=== PATIENT | female | born 1935 | race Caucasian/White ===

== ENCOUNTER 2017-08-05 21:06 | Emergency (ER) | payer OTHER ==
--- NOTE | 2017-08-05 21:38 | EDPHY ---
H & P HPI/ROS: HPI CHIEF COMPLAINT: Left flank pain, trauma HISTORY OF PRESENT ILLNESS: Patient very pleasant 82-year-old female she is visiting her daughter she is from [facility] she is on Eliquis, she additionally has hypertension thyroid disease, she presents emergency room after she had a fall this evening at her daughter's house. She hit her back on the toilet and sustained a left flank pain with ecchymosis. And swelling. Past Medical History: Hypertension, thyroid disease, AFib on Eliquis Past Surgical History: No recent surgery Social History: Denies daily use of drugs alcohol tobacco products. Resides in [facility]. Family History: Noncontributory ROS REVIEW OF SYSTEMS: A comprehensive 10 point review of systems is otherwise negative aside from elements mentioned in the history of present illness. Exam Constitutional appears well nontoxic, triage nursing summary reviewed, vital signs reviewed, awake/alert. Eyes normal conjunctivae and sclera, EOMI, PERRLA. HENT normal inspection, atraumatic, moist mucus membranes, no epistaxis, neck supple/ no meningismus, no raccoon eyes. Respiratory clear to auscultation bilaterally, normal breath sounds, no respiratory distress, no wheezing. Cardiovascular rate normal, regular rhythm, no murmur, no edema, distal pulses normal. Gastrointestinal soft, non-tender, no rebound, no guarding, normal bowel sounds, no distension, no pulsatile mass. Genitourinary tenderness palpation of the left flank, ecchymosis and swelling present. No crepitus. Musculoskeletal no midline vertebral tenderness, full range of motion, no calf swelling, no tenderness of extremities, no meningismus, good pulses, neurovascularly intact. Skin pink, warm, & dry, no rash, skin atraumatic. Neurologic awake, alert and oriented x 3, AAOx3, moves all 4 extremities equally, motor intact, sensory intact, CN II-XII intact, normal cerebellar, normal vision, normal speech. Psychiatric normal mood/affect. Heme/Lymph/Immune no lymphadenopathy. Differential Diagnosis: Includes but is not limited to in a particular order traumatic injury to the left kidney, retroperitoneal bleed, musculoskeletal injury, soft tissue injury, flank contusion. Medical Decision Making: Plan for this patient IV establishment, check basic blood work including coags, CT abdomen pelvis with IV contrast for trauma. To evaluate the left kidney make sure there is not a renal contusion laceration bleed. Retroperitoneal bleed. Re-evaluation: 2250: CT scan abdomen pelvis with IV contrast for left flank trauma called to me by Dr. Dhruv Valerio. This shows a L1 transverse process fracture as well as a left 11th rib fracture. No pneumothorax. No hemothorax. No kidney injury. Additionally incidental finding descending aortic aneurysm 3.9. Will update patient about this. 2310: I went over this patient's CT results with her. She understands she has an abdominal aortic aneurysm that needs follow-up. Aditionally the patient understands she is L1 transverse process fracture. 11th rib fracture. She be placed on a incentive spirometer. Recommend Tylenol for pain control. Ice pack. Additionally she understands return emergency room if develops worsening back pain vomiting abdominal pain fever. Of note it was noted her blood pressure was high when she arrived here. Has tried down slightly in emergency room she understands she should keep a close eye on this and follow up with her primary care doctor. Return precautions have been given. 1240: Re-evaluation at this time blood pressure greatly improved with IV hydralazine 10 mg. She is resting comfortably. She complains of left-sided back pain. Pettis 0.5 mg IV Dilaudid. Re-evaluation. Source: Patient, EMS Constitutional: Initial Vital Signs Temperature (C) 36.6 C 08/05/17 21:44 Heart Rate 65 08/05/17 21:44 Respiratory Rate 16 08/05/17 21:44 Blood Pressure 203/90 H 08/05/17 21:44 O2 Sat (%) 90 L 08/05/17 21:44 O2 Delivery Mode Nasal Cannula O2 (L/minute) 2 Allergies/Adverse Reactions: No Known Allergies Allergy (Unverified 08/05/17 21:54) Home Medications: Medication Instructions Recorded ASPIRIN 08/05/17 BIOTIN 08/05/17 Eliquis 08/05/17 LEVOTHYROXINE SODIUM 08/05/17 Losartan Potassium 08/05/17 Metoprolol Succinate 08/05/17 VITAMIN D 08/05/17 VITAMIN E 08/05/17 Medical Decision Making - Data Points Laboratory Results: Laboratory Results 08/05/17 21:50 08/05/17 21:50 08/05/17 08/05/17 08/05/17 23:15 21:50 21:50 WBC RBC Hgb Hct MCV MCH MCHC RDW Plt Count MPV Neut % (Auto) Lymph % (Auto) [place] % (Auto) Eos % (Auto) Baso % (Auto) Nucleat RBC Rel Count Absolute Neuts (auto) Absolute Lymphs (auto) Absolute Monos (auto) Absolute Eos (auto) Absolute Basos (auto) Absolute Nucleated RBC Immature Gran % Immature Gran # PT 17.7 SEC H SEC (12.0-15.0) INR 1.46 H (0.83-1.16) APTT 32.0 SEC SEC (23.0-38.0) Sodium 139 mEq/L mEq/L (134-144) Potassium 3.9 mEq/L mEq/L (3.5-5.2) Chloride 102 mEq/L mEq/L (97-110) Carbon Dioxide 26 mEq/l mEq/l (22-31) Anion Gap 11 mEq/L mEq/L (8-16) BUN 25 mg/dL H mg/dL (7-23) Creatinine 1.5 mg/dL H mg/dL (0.6-1.0) Estimated GFR 33 Glucose 114 mg/dL H mg/dL (70-100) Calcium 9.7 mg/dL mg/dL (8.5-10.4) Urine Color PALE YELLOW Urine Appearance CLEAR Urine pH 5.0 (5.0-7.5) Ur Specific [place] 1.028 (1.002-1.030) Urine Protein NEGATIVE (NEGATIVE) Urine Ketones NEGATIVE (NEGATIVE) Urine Blood 1+ H (NEGATIVE) Urine Nitrate NEGATIVE (NEGATIVE) Urine Bilirubin NEGATIVE (NEGATIVE) Urine Urobilinogen NEGATIVE EU EU (0.2-1.0) Ur Leukocyte Esterase NEGATIVE (NEGATIVE) Urine RBC 1-3 /hpf /hpf (0-3) Urine WBC 1-3 /hpf /hpf (0-3) Ur Epithelial Cells TRACE /lpf /lpf (NONE-1+) Urine Mucus TRACE /lpf /lpf (NONE-1+) Urine Glucose NEGATIVE (NEGATIVE) 08/05/17 21:50 WBC 8.59 10^3/uL 10^3/uL (3.80-9.50) RBC 4.13 10^6/uL L 10^6/uL (4.18-5.33) Hgb 14.2 g/dL g/dL (12.6-16.3) Hct 41.8 % % (38.0-47.0) MCV 101.2 fL H fL (81.5-99.8) MCH 34.4 pg H pg (27.9-34.1) MCHC 34.0 g/dL g/dL (32.4-36.7) RDW 13.8 % % (11.5-15.2) Plt Count 193 10^3/uL 10^3/uL (150-400) MPV 10.2 fL fL (8.7-11.7) Neut % (Auto) 65.7 % % (39.3-74.2) Lymph % (Auto) 19.9 % % (15.0-45.0) [place] % (Auto) 9.5 % % (4.5-13.0) Eos % (Auto) 3.6 % % (0.6-7.6) Baso % (Auto) 0.7 % % (0.3-1.7) Nucleat RBC Rel Count 0.0 % % (0.0-0.2) Absolute Neuts (auto) 5.64 10^3/uL 10^3/uL (1.70-6.50) Absolute Lymphs (auto) 1.71 10^3/uL 10^3/uL (1.00-3.00) Absolute Monos (auto) 0.82 10^3/uL H 10^3/uL (0.30-0.80) Absolute Eos (auto) 0.31 10^3/uL 10^3/uL (0.03-0.40) Absolute Basos (auto) 0.06 10^3/uL 10^3/uL (0.02-0.10) Absolute Nucleated RBC 0.00 10^3/uL 10^3/uL (0-0.01) Immature Gran % 0.6 % % (0.0-1.1) Immature Gran # 0.05 10^3/uL 10^3/uL (0.00-0.10) PT INR APTT Sodium Potassium Chloride Carbon Dioxide Anion Gap BUN Creatinine Estimated GFR Glucose Calcium Urine Color Urine Appearance Urine pH Ur Specific [place] Urine Protein Urine Ketones Urine Blood Urine Nitrate Urine Bilirubin Urine Urobilinogen Ur Leukocyte Esterase Urine RBC Urine WBC Ur Epithelial Cells Urine Mucus Urine Glucose Medications Given: Discontinued Medications Hydralazine HCl (Apresoline) 10 mg IVP EDNOW ONE Stop: 08/05/17 23:30 Last Admin: 08/05/17 23:35 Dose: 10 mg Hydromorphone HCl (Dilaudid) 0.5 mg IVP EDNOW ONE Stop: 08/06/17 00:25 Last Admin: 08/06/17 00:32 Dose: 0.5 mg Sodium Chloride (Ns) 1,000 mls @ 0 mls/hr IV ONCE ONE PRN Reason: Wide Open Stop: 08/05/17 22:25 Last Admin: 08/05/17 22:40 Dose: 1,000 mls Departure - Departure Disposition: Home, Routine, Self-Care Clinical Impression: Contusion, flank Qualifiers: Encounter type: initial encounter Qualified Code(s): S30.1XXA - Contusion of abdominal wall, initial encounter Rib fracture Qualifiers: Encounter type: initial encounter Rib fracture type: single rib Fracture type: closed Laterality: left Qualified Code(s): S22.32XA - Fracture of one rib, left side, initial encounter for closed fracture Lumbar transverse process fracture Qualifiers: Encounter type: initial encounter Fracture type: closed Qualified Code(s): S32.009A - Unspecified fracture of unspecified lumbar vertebra, initial encounter for closed fracture AAA (abdominal aortic aneurysm) Qualifiers: Presence of rupture: without rupture Qualified Code(s): I71.4 - Abdominal aortic aneurysm, without rupture Condition: Good Instructions: Rib Fracture (ED) Additional Instructions: 1.If you have worsening pain please immediately return to the emergency room. 2. View started vomiting having worsening abdominal pain back pain return to the ER. 3. You have a single rib fracture. 4. Additionally you have a abdominal aortic aneurysm that needs to be followed up by her doctor. Referrals: NONE *PRIMARY CARE P,. [Primary Care Provider] - As per Instructions
[2017-08-05 22:18] LABS: PLATELET COUNT 193 10^3/uL (150-400)
[2017-08-05] MEDS ORDERED: IOPAMIDOL (ISOVUE-300) 100 ML BTL ONE (22:21)
[2017-08-05] MEDS ORDERED: NS 1,000 ML IV ONE (22:24)
[2017-08-05 23:00] LABS: INR 1.46 (0.83-1.16); PROTIME(PATIENT) 17.7 SEC (12.0-15.0)
[2017-08-05] MEDS ORDERED: hydrALAZINE 20 MG/ML VIAL IVP ONE (23:29)
[2017-08-06] MEDS ORDERED: HYDROmorphONE/DILAUDID 1 MG/ML INJ IVP ONE (00:24)
[2017-08-06 01:31] VITALS: BP 124/65; PULSE 77; RESP 18; TEMP 98.1; O2SAT 96
== END 2017-08-06 01:36 | disposition home or self-care (01) ==
DX: S32.009A Unspecified fracture of unspecified lumbar vertebra, initial encounter for closed fracture (principal); S22.32XA Fracture of one rib, left side, initial encounter for closed fracture; S30.1XXA Contusion of abdominal wall, initial encounter; I71.4 Abdominal aortic aneurysm, without rupture; I10 Essential (primary) hypertension; Z79.82 Long term (current) use of aspirin; Z79.01 Long term (current) use of anticoagulants; W18.12XA Fall from or off toilet with subsequent striking against object, initial encounter; Y92.009 Unspecified place in unspecified non-institutional (private) residence as the place of occurrence of the external cause
CPT/HCPCS: 74177; 96361; 96374; 96375; 99285; J0360; J1170; Q9967

== ENCOUNTER 2017-09-07 11:01 | Observation (INO) | payer OTHER ==
--- NOTE | 2017-09-07 13:31 | CPEKG ---
Heart Rate: 53 RR Interval: 1132 P-R Interval: 200 QRSD Interval: 96 QT Interval: 440 QTC Interval: 414 P [place]: 51 QRS [place]: -27 T Wave [place]: 110 EKG Severity - ABNORMAL ECG - EKG Impression: SINUS RHYTHM EKG Impression: PROBABLE LEFT VENTRICULAR HYPERTROPHY Electronically Signed By: Ivory Stein 07-Sep-2017 17:57:36
[2017-09-07 14:37] LABS: % IMMATURE GRANULYOCYTES 0.3 % (0.0-1.1); ABSOLUTE IMMATURE GRANULOCYTES 0.02 10^3/uL (0.00-0.10); ADD DIFF? NO; ADD MORPH? NO; ADD SCAN? NO; ATYPICAL LYMPHOCYTE FLAG 0 (0-99); FRAGMENT RBC FLAG 0 (0-99); HEMATOCRIT 44.3 % (38.0-47.0); HEMOGLOBIN 15.1 g/dL (12.6-16.3); LEFT SHIFT FLG 0 (0-99); LIPEMIA HEMOLYSIS FLAG 90 (0-99); MEAN CELL HEMOGLOBIN 34.9 pg (27.9-34.1); MEAN CELL HEMOGLOBIN CONCENTR. 34.1 g/dL (32.4-36.7); MEAN CELL VOLUME 102.3 fL (81.5-99.8); MEAN PLATELET VOLUME 10.2 fL (8.7-11.7); PLATELET CLUMPS FLAG 30 (0-99); PLATELET COUNT 181 10^3/uL (150-400); RED BLOOD CELL COUNT 4.33 10^6/uL (4.18-5.33); RED CELL DISTRIBUTION WIDTH 13.6 % (11.5-15.2)
[2017-09-07 14:46] LABS: ALANINE AMINOTRANSFERASE 38 IU/L (9-52); ALBUMIN 3.8 g/dL (3.5-5.0); ALKALINE PHOSPHATASE 85 IU/L (38-126); ANION GAP 13 mEq/L (8-16); ASPARTATE AMINOTRANSFERASE 25 IU/L (14-46); BILIRUBIN,TOTAL 0.4 mg/dL (0.1-1.4); BILIRUBIN-CONJUGATED 0.2 mg/dL (0.0-0.5); BILIRUBIN-UNCONJUGATED 0.2 mg/dL (0.0-1.1); CALCIUM 10.2 mg/dL (8.5-10.4); CARBON DIOXIDE 25 mEq/l (22-31); CHLORIDE 108 mEq/L (97-110); CREATININE 1.2 mg/dL (0.6-1.0); GLOMERULAR FILTRATION RATE 43; GLUCOSE 103 mg/dL (70-100); POTASSIUM 4.4 mEq/L (3.5-5.2); SODIUM 146 mEq/L (134-144); TOTAL PROTEIN 6.7 g/dL (6.3-8.2)
[2017-09-07 14:57] LABS: TROPONIN I < 0.012 ng/mL (0.000-0.034)
--- NOTE | 2017-09-07 16:53 | EDPHY ---
H & P Stated Complaint: Sent from new PCPs office for eval drop in O2 w/ambulation Time Seen by Provider: 09/07/17 13:30 HPI/ROS: CHIEF COMPLAINT: Shortness of breath HISTORY OF PRESENT ILLNESS: This is an 82-year-old female presents emergency department reporting that last month she has been having shortness of breath. Patient moved to [place] approximately a month ago and is living with her daughter. She denies fevers or chills, cold or cough symptoms. She denies chest discomfort although she did fall in the bathtub about a month ago and struck her posterior left chest causing a rib fracture. No anterior chest pain. No palpitations. No lightheadedness or dizziness or fainting. No peripheral edema. Patient has a history of CVA, atrial fibrillation, and a patent foramen ovale. She is currently on Eliquis as well as aspirin. She went to see a new primary care physician, Dr. Zhang, today and was noted in the office to desaturate into the low 80s with ambulation. She was referred to the emergency department for further evaluation. REVIEW OF SYSTEMS: Aside from elements discussed in the HPI, a comprehensive 10-point review of systems was reviewed and is negative. PAST MEDICAL HISTORY: CVA, hypertension, patent foramen ovale, atrial fibrillation. SOCIAL HISTORY: Former smoker. With her daughter. VITAL SIGNS Reviewed by me. GENERAL: Pleasant, elderly female, no obvious distress. O2 sat on room air ranges from 88-90%. No obvious respiratory distress. HEENT: Atraumatic. Eyes: No icterus, no injection. Mouth: moist mucous membranes. No erythema or lesions. Neck: supple with no adenopathy. LUNGS: Clear to auscultation bilaterally, no wheezes, rhonchi or rales. CARDIAC: A bradycardic rate, slightly irregular. No rubs murmurs or gallops. ABDOMEN: Soft, nontender, nondistended, bowel sounds normal. BACK: No CVA tenderness. EXTREMITIES: No trauma. No edema. Range of motion is normal throughout. NEURO: Alert and oriented, cranial nerves 2-12 are intact. No nystagmus. Pupils are 3 mm reactive on the right, 4 mm and reactive on the left. Motor strength and sensation are intact throughout. SKIN: Warm and dry, no rash. PSYCHIATRIC: [Normal mentation, no agitation. - Personal History Current Tetanus Diphtheria and Acellular Pertussis (TDAP): Yes - Medical/Surgical History Hx Asthma: No Hx Chronic Respiratory Disease: No Hx Cardiac Disease: Yes Hx Renal Disease: No Hx Cirrhosis: No Hx Alcoholism: No Hx HIV/AIDS: No Hx Splenectomy or Spleen Trauma: No Other PMH: a-fib, cva, htn, tia, hypothyroid - Social History Smoking Status: Former smoker Constitutional: Initial Vital Signs Temperature (C) 36.7 C 09/07/17 11:13 Heart Rate 75 09/07/17 11:13 Respiratory Rate 20 09/07/17 11:13 Blood Pressure 151/78 H 09/07/17 11:13 O2 Sat (%) 93 09/07/17 11:13 O2 Delivery Mode Nasal Cannula O2 (L/minute) 2 Allergies/Adverse Reactions: No Known Allergies Allergy (Verified 09/07/17 11:13) Home Medications: Medication Instructions Recorded ASPIRIN 08/05/17 BIOTIN 08/05/17 Eliquis 08/05/17 LEVOTHYROXINE SODIUM 08/05/17 Losartan Potassium 08/05/17 Metoprolol Succinate 08/05/17 VITAMIN D 08/05/17 VITAMIN E 08/05/17 Medical Decision Making - Diagnostics EKG Interpretation: 12-LEAD EKG: Please see the full report in [facility]. My interpretation: sinus bradycardia Imaging Results: Imaging Impressions Chest X-Ray 09/07/17 13:34 Impression: No evidence for acute cardiopulmonary abnormality. Chronic findings as above. Imaging: I viewed and interpreted images myself ED Course/Re-evaluation: 82-year-old female recently moved to [place] now presenting with shortness of breath and hypoxia on exertion. Referred to the emergency department from Dr. Zhang. Patient has a somewhat complex past medical history including atrial fibrillation, stroke, on Eliquis on aspirin, and history of the patent foramina ovale. Evaluation included labs demonstrating a normal troponin and a negative D-dimer with a BNP of 566. Chest x-ray demonstrates no clear cause of the patient's hypoxemia. She does not have peripheral edema examination. Patient's course was discussed with the hospitalist service. She will be admitted to Dr. Bhakta service for ongoing evaluation of her persistent hypoxemia. Differential Diagnosis: Differential diagnosis for the patient's shortness of breath was considered including but not limited to pulmonary infectious processes, COPD exacerbation, pulmonary emboli, pulmonary edema, congestive heart failure, and cardiac causes. Consult/Admit Bed Type: Dr. Bhakta, [facility] - Data Points Laboratory Results: Laboratory Results 09/07/17 14:25 09/07/17 14:25 09/07/17 09/07/17 09/07/17 14:25 14:25 14:25 WBC 6.50 10^3/uL 10^3/uL (3.80-9.50) RBC 4.33 10^6/uL 10^6/uL (4.18-5.33) Hgb 15.1 g/dL g/dL (12.6-16.3) Hct 44.3 % % (38.0-47.0) MCV 102.3 fL H fL (81.5-99.8) MCH 34.9 pg H pg (27.9-34.1) MCHC 34.1 g/dL g/dL (32.4-36.7) RDW 13.6 % % (11.5-15.2) Plt Count 181 10^3/uL 10^3/uL (150-400) MPV 10.2 fL fL (8.7-11.7) Neut % (Auto) 58.3 % % (39.3-74.2) Lymph % (Auto) 26.6 % % (15.0-45.0) [place] % (Auto) 10.5 % % (4.5-13.0) Eos % (Auto) 3.5 % % (0.6-7.6) Baso % (Auto) 0.8 % % (0.3-1.7) Nucleat RBC Rel Count 0.0 % % (0.0-0.2) Absolute Neuts (auto) 3.79 10^3/uL 10^3/uL (1.70-6.50) Absolute Lymphs (auto) 1.73 10^3/uL 10^3/uL (1.00-3.00) Absolute Monos (auto) 0.68 10^3/uL 10^3/uL (0.30-0.80) Absolute Eos (auto) 0.23 10^3/uL 10^3/uL (0.03-0.40) Absolute Basos (auto) 0.05 10^3/uL 10^3/uL (0.02-0.10) Absolute Nucleated RBC 0.00 10^3/uL 10^3/uL (0-0.01) Immature Gran % 0.3 % % (0.0-1.1) Immature Gran # 0.02 10^3/uL 10^3/uL (0.00-0.10) D-Dimer 0.44 ug/mLFEU ug/mLFEU (0.00-0.50) Sodium 146 mEq/L H mEq/L (134-144) Potassium 4.4 mEq/L mEq/L (3.5-5.2) Chloride 108 mEq/L mEq/L (97-110) Carbon Dioxide 25 mEq/l mEq/l (22-31) Anion Gap 13 mEq/L mEq/L (8-16) BUN 28 mg/dL H mg/dL (7-23) Creatinine 1.2 mg/dL H mg/dL (0.6-1.0) Estimated GFR 43 Glucose 103 mg/dL H mg/dL (70-100) Calcium 10.2 mg/dL mg/dL (8.5-10.4) Total Bilirubin 0.4 mg/dL mg/dL (0.1-1.4) Conjugated Bilirubin 0.2 mg/dL mg/dL (0.0-0.5) Unconjugated Bilirubin 0.2 mg/dL mg/dL (0.0-1.1) AST 25 IU/L IU/L (14-46) ALT 38 IU/L IU/L (9-52) Alkaline Phosphatase 85 IU/L IU/L (38-126) Troponin I < 0.012 ng/mL ng/mL (0.000-0.034) NT-Pro-B Natriuret Pep 566 pg/mL H pg/mL (0-450) Total Protein 6.7 g/dL g/dL (6.3-8.2) Albumin 3.8 g/dL g/dL (3.5-5.0) Departure - Departure Disposition: [facility] Inpatient Acute Clinical Impression: Hypoxemia Dyspnea Qualifiers: Dyspnea type: dyspnea on exertion Qualified Code(s): R06.09 - Other forms of dyspnea Condition: Fair Referrals: Roya Zhang MD [Primary Care Provider] - As per Instructions
[2017-09-07] MEDS ORDERED: ONDANSETRON DISINTEGRATING 4 MG TAB PO PRN (17:51)
[2017-09-07] MEDS ORDERED: ACETAMINOPHEN 325 MG TAB PO PRN (17:51)
[2017-09-07] MEDS ORDERED: ONDANSETRON 4 MG/2 ML VIAL IVP PRN (17:51)
[2017-09-07] MEDS ORDERED: hydrALAZINE 25 MG TAB PO PRN (17:53)
--- NOTE | 2017-09-07 18:34 | GHP ---
[f rep st] HISTORY AND PHYSICAL DATE OF ADMISSION: 09/07/2017 CHIEF COMPLAINT: Shortness of breath. HISTORY OF PRESENT ILLNESS: This is an 82-year-old female with history of stroke x2 in April 2017, hypertension, PFO, atrial fibrillation, presenting with shortness of breath for the past month. This started when she moved to [place] from [place] to live with her daughter. She notes this specifically when she gets up and out of bed. Per her daughter, it is when she is walking up or down the stairs. Denies chest pain, cough or fever. No lower extremity or abdominal swelling. Mild pillow orthopnea. The day after moving here, she fell out of the tub and hit the toilet and broke a rib, per her reports. She no longer has pain or splinting. Occasional snoring, per her daughter. She has also been complaining of increased left eye blurriness for the past couple weeks, which has been going on since her stroke. She lost total vision for a few seconds yesterday. No dysarthria or focal numbness or focal weakness. 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 REVIEW OF SYSTEMS: I completed a 10-point review of systems, negative except as noted in HPI. PAST MEDICAL HISTORY: PFO, atrial fibrillation on anticoagulation, hypertension , hyperlipidemia, hypothyroidism, stroke x2 in April 2017, 100% carotid stenosis. PAST SURGICAL HISTORY: None. FAMILY HISTORY: Mother with cancer and [place]. Father with no past medical history. SOCIAL HISTORY: Lives with her daughter, phone number [phone], here in [place]. Smoked a pack to 2 packs a day for 60 years. No alcohol or illicits. ALLERGIES: No known drug allergies. HOME MEDICATIONS: Vitamin E, vitamin D, metoprolol 25 mg twice daily, aspirin 81 mg, levothyroxine 80 mcg, atorvastatin 80 mg, Eliquis 5 mg, biotin. PHYSICAL EXAM: VITAL SIGNS: Temperature 36.7, blood pressure 155/100, heart rate 55, respiration 18, 95% on 2 L, dropped to 88 on room air. HEENT: PERRLA. EOMI. Oropharynx clear. CARDIOVASCULAR: Bradycardic, but regular. No murmurs, gallops, rubs. Trace pedal edema. LUNGS: Clear. No wheezing or crackles. ABDOMEN: Soft, nontender, nondistended. Positive bowel sounds. : No [place]. MUSCULOSKELETAL: 5/5, upper and lower extremity strength. NEURO: 2 through 12 intact. PSYCH: Alert and oriented x3. Very pleasant. LABORATORY DATA: WBC 6, hemoglobin 15, hematocrit 44, platelets 181. D-dimer 0.44. Sodium 146, potassium 4.4, chloride 108, BUN 28, creatinine 1.2 (no old to compare), glucose 103. LFTs within normal. Troponin less than 0.012. BNP is 566. Total protein 6.7, albumin is 3.8 cm. EKG is personally reviewed by me, LVH, T-wave inversion in II and aVF, also in V2 through V5. No old to compare. Chest x-ray is personally reviewed by me, hyperexpanded, no opacity. Mild blunting of costophrenic angle. ASSESSMENT AND PLAN: 1. Shortness of breath: Mildly hypoxic here at 85% RA, 93 on 2 liters. Suspect due to underlying chronic obstructive pulmonary disease with significant tobacco history. Troponin and electrocardiogram negative for ischemia. Negative D-dimer. There is no overt volume overload. Check an echocardiogram. Recommend outpatient pulmonary function tests and follow up with Pulmonology. 2. Accelerated hypertension: resume home meds. p.r.n. hydralazine. 3. History of stroke: Aspirin, statin, beta-zack. 4. Persistent left eye blurriness: progressive since her CVA. She says complete occlusion of right ICA, but it is actually on the left on U/S here. Aggressive medical management with ASA, statin and BP control. 5. Hyperlipidemia: Statin. 6. Atrial fibrillation, rate controlled on metoprolol. Continue Eliquis. 7. Hypothyroidism. Levothyroxine. 8. Diet: Cardiac. 9. Deep venous thrombosis prophylaxis: On Eliquis. 10. Disposition: The patient warrants observation admission, given shortness of breath requiring pulse oxygen saturation and echocardiogram. /[id number]/MODL MTDD
[2017-09-07] MEDS: METOPROLOL TARTRATE 25 MG TAB PO SCH (19:39)
[2017-09-07] MEDS ORDERED: ATORVASTATIN CALCIUM 40 MG TAB PO SCH (21:00)
[2017-09-07] MEDS: APIXABAN 5 MG TAB PO SCH (21:06)
--- NOTE | 2017-09-08 08:30 | PDHOMEO2F ---
Home Oxygen Face to Face Home Orders: I certify that a physician or a nurse practitioner or physician's health assistant has had a [id number] encounter with this patient on the date of this order due to the diagnosis listed, which relates to the primary reason the patient requires home oxygen. Alternative treatments have been tried, or considered, and deemed ineffective. It is anticipated that supplemental oxygen will result in improvement with treatment. Home oxygen qualifying diagnosis: COPD SpO2 on room air (%): 80 Frequency of home oxygen needed: continuous Home oxygen liters per minute: 2 Home oxygen delivery device: nasal cannula Concentrator: Yes E-tanks for mobility and back up: Yes If ordering portable O2, is the patient mobile in the home?: Yes I certify that, based on these findings, the home oxygen is medically necessary for this patient for the following length of time. Length of time home oxygen needed: 1 month
[2017-09-08] MEDS ORDERED: ASPIRIN 81 MG CHEWABLE TAB PO SCH (09:00)
[2017-09-08] MEDS: APIXABAN 5 MG TAB PO SCH (09:39)
[2017-09-08] MEDS: METOPROLOL TARTRATE 25 MG TAB PO SCH (09:39)
--- NOTE | 2017-09-08 10:07 | ASMTCASEMG ---
Living Arrangements What is your living Answers: With Child(carmita) arrangement? Who do you live with? Type Of Residence What kind of residence do Answers: House you live in? Discharge Plan Comments Coordination Status Comments Notes: Patient is an 82yo female who was admitted observation status for shortness of breath, accelerated hypertension, hx of stroke, and persistant left eye blurriness. She recently moved here from [place] to live with her daughter, Chantel in [place]. No therapies have been ordered. D/C needs TBD. CM will follow. Date Signed: 09/08/2017 10:06 AM Electronically Signed By:Peggy Ivy LCSW
[2017-09-08 11:35] VITALS: TEMP 97.4
--- NOTE | 2017-09-08 12:15 | ECHO ---
[email or web address] [address] [address] Main: [phone] Fax: Transthoracic Echocardiogram Name: MELLO LEWIS MR#: [id number] Study Date: 09/08/2017 Study Time: 07:46 AM Date of : 1935 Age: 82 year(s) Height: 152.4 cm (60 in.) Weight: 62.6 kg (138 lb.) BSA: 1.59 m2 Gender: Female Examination: Echo Indication: Shortness of breath, Eval for RHF Image Quality: Contrast: Requested by: Edie Bhakta BP: 172 mmHg/67 mmHg Heart Rate: Rhythm: Normal sinus rhythm Indication: Shortness of breath, Eval for RHF Procedure Staff Dough Machine Operator: Sheldon Mast Reading Physician: Osmel Kebede Requesting Provider: Conclusions: Normal size left ventricle. Mild concentric LV hypertrophy. Normal global systolic LV function. EF is 69 %. No regional wall motion abnormality. Diastolic dysfunction is present. . Normal size right ventricle. Normal RV function. The left atrium is mildly dilated. Mild mitral valve regurgitation is present. The aortic valve is normal in appearance. The aortic valve is tri-leaflet. Mild to moderate aortic valve regurgitation. The pulmonary artery pressure is mildly increased. Mildly dilated ascending aorta measuring 4.2 cm. Measurements: Chambers Valvular Assessment AV/MV Valvular Assessment TV/PV Normal Normal Normal Name Value Range Name Value Range Name Value Range Ao Nataly (MM): 3.7 cm (2.2 cm-3.7 AV Vmax: 1.32 m/s (1 m/s-1.7 TR Vmax: 3.17 mm/s ( - ) cm) m/s) TR PGmax: 40 mmHg ( - ) IVSd (2D): 1.2 cm (0.6 cm-1.1 AV maxP mmHg ( - ) syst. PAP: 45 mmHg ( - ) cm) AV meanP mmHg ( - ) PV Vmax: 0.80 m/s (0.6 m/s-0.9 LVDd (2D): 4.0 cm (3.9 cm-5.3 FIDELINA (VTI): 1.4 cm ( - ) m/s) cm) AR (PHT): 677 ms ( - ) PV PGmax: 3 mmHg ( - ) LVDs (2D): 2.5 cm (2.1 cm-4 MV E Vmax: 0.80 m/s ( - ) cm) MV A Vmax: 0.42 m/s ( - ) LVPWd (2D): 1.1 cm ( - ) MV E/A: 1.90 ( - ) LVOTd 1.9 cm 1.9 cm mm MV meanP mmHg ( - ) Patient: MELLO LEWIS Study Date: 09/08/2017 Page 1 of 2 07:46 AM LVEF (2D): 69 (>=54 %) MVA (Vmax): 1.8 m/s ( - ) Continued Measurements: Chambers Valvular Assessment AV/MV Valvular Assessment TV/PV Name Value Name Value Name Value LADs Lon.0 cm MV Annulus: 3.1 cm CVP (est.): 5 mmHg LA Area: 15.6 cm2 MV E' Septal: 0.05 m/s LA Volume: 65 ml MV E/E' Septal: 16.10 LA Volume Index: 40.9 ml/m2 MV E/E' Lateral: 12.30 MV VTI: 26.10 cm MR ERO: 0.070 cm2 MR PISA radius: 4 mm MR Reg. Volume: 8 ml MR Reg. Fraction: 4 % AR Vmax: 4.80 cm/s AR ERO: 0.080 cm2 AR PISA radius: 0.4 cm AR Reg. Volume: 21.0 ml AR Reg. Fraction: 44 % AR VTI: 259.0 cm Additional Vessels Name Value Ao Ascendin.2 cm Findings: Left Ventricle: Normal size left ventricle. Mild concentric LV hypertrophy. Normal global systolic LV function. EF is 69 %. No regional wall motion abnormality. Diastolic dysfunction is present. . Right Ventricle: Normal size right ventricle. Normal RV function. Left Atrium: The left atrium is mildly dilated. Right Atrium: The right atrium is normal in size. Mitral Valve: The mitral valve is normal in appearance. Mild mitral valve regurgitation is present. Aortic Valve: The aortic valve is normal in appearance. The aortic valve is tri-leaflet. Mild to moderate aortic valve regurgitation. Tricuspid Valve: The tricuspid valve appears normal. Trivial to mild tricuspid valve regurgitation. The pulmonary artery pressure is mildly increased. Pulmonic Valve: The pulmonic valve is normal in appearance and function. Aorta: Mildly dilated ascending aorta measuring 4.2 cm. Pericardium: No pericardial effusion. (No Signature Object) Patient: MELLO LEWIS Study Date: 09/08/2017 Page 2 of 2 07:46 AM [id number]
[2017-09-08] MEDS ORDERED: APIXABAN 5 MG TAB PO SCH (12:30)
[2017-09-08] MEDS ORDERED: ATORVASTATIN CALCIUM 40 MG TAB PO SCH (12:30)
[2017-09-08] MEDS ORDERED: LEVOTHYROXINE 88 MCG TAB PO SCH (12:30)
[2017-09-08] MEDS ORDERED: METOPROLOL TARTRATE 25 MG TAB PO SCH (12:30)
[2017-09-08] MEDS ORDERED: LOSARTAN POTASSIUM 50 MG TAB PO SCH (12:30)
[2017-09-08] MEDS ORDERED: CHLORTHALIDONE 25 MG TAB PO SCH (12:30)
[2017-09-08] MEDS ORDERED: Herbals/Supplements -Info Only PO SCH (12:30)
[2017-09-08] MEDS ORDERED: ASPIRIN EC 81 MG TAB PO SCH (12:30)
[2017-09-08 16:17] VITALS: BP 162/83; PULSE 55; RESP 18; O2SAT 98
--- NOTE | 2017-09-08 17:56 | PDDCSUM ---
Discharge Summary Discharge Summary: DISCHARGE SUMMARY FOLLOW-UP ITEMS: Outpatient creatinine BUN and lytes Outpatient pulmonary function test DATE OF ADMISSION: 09/07/2017 DATE OF DISCHARGE: 09/08/2017 DISCHARGE DIAGNOSES: 1. Suspected COPD 2. Chronic hypertension 3. Paroxysmal atrial fibrillation 4. Suspected pulmonary hypertension CONSULTATIONS: None PROCEDURES / IMAGING: Echocardiogram demonstrating diastolic dysfunction, normal ejection fraction, elevated RVSP CHIEF COMPLAINT: Acute hypoxia and visual disturbance SUBJECTIVE: Patient is feeling well at time of discharge, she is no longer experiencing any visual symptoms and she is not short of breath PHYSICAL EXAM ON DISCHARGE: SpO2 was 86% on room air at rest, 72% with activity, reduced expiratory air movement diffusely throughout but no expiratory wheezes or bronchial breath sounds, no evidence of tachypnea, heart rhythm is regular, no lower extremity edema, cranial nerves 2-12 are intact and tested with the exception of left tongue deviation, mild left mouth palsy comma motor strength is 5/5 bilaterally upper and lower extremities, sensation intact bilaterally LABS ON DISCHARGE: Creatinine 1.2, BUN 28, serum sodium 146, BNP 566 HOSPITAL COURSE BY PROBLEM: The patient presented with acute hypoxia from the primary care setting, and this is most likely secondary to undiagnosed COPD with recent change in altitude from [facility] to [place]. The patient was not experiencing any signs of acute COPD exacerbation, and she was ruled out for pulmonary embolism with a negative D-dimer, ruled out for acute coronary syndrome with no ischemic changes on EKG, negative troponin. The patient was placed on supplemental oxygen and her hypoxia medially resolved. Consequently, the patient will require supplemental oxygen moving forward, with outpatient formal pulmonary function test to be arranged in the short term. I have also recommended that the patient carry an as-needed albuterol inhaler and she does have a significant smoking history and I believe that obstructive lung disease is her underlying pathology. She did not have any evidence of CHF exacerbation on chest x-ray, and I do not believe that she needs a cardiac stress test at this time unless the patient begins developing anginal symptoms despite being on supplemental oxygen. The patient's visual disturbance has been an intermittent occurrence, and she has no other signs of stroke. Consequently, I would recommend that she obtain formal outpatient ophthalmology visual field testing, and this will be arranged by the patient and her daughter in the short term. She will be continued on her systemic anticoagulation and anti-platelet medication as well as her statin, given her known 100% left carotid artery stenosis. Her blood pressure was less than optimal, and I have recommended initiating low-dose thiazide diuretic to be used in combination with her ARB, and she should have labs followed up at her primary care provider office. DISCHARGE MEDICATIONS: Please see official discharge medication reconciliation sheet in chart , chlorthalidone 12.5 mg daily, albuterol inhaler as needed, continue all other home medications. DISCHARGE INSTRUCTIONS: Please establish care with Dr. Kip Vora, obtain outpatient pulmonary function tests, have labs followed up by her primary care provider office later this week.
--- NOTE | 2017-09-09 10:31 | ASDISCHSUM ---
Discharge Information Plan Status:Home with No Needs Medically Cleared to Leave:09/07/2017 Discharge Date:09/08/2017 06:09 PM D/C Disposition: ADT D/C Disposition:Home, Routine, Self-Care Projected Discharge Date:09/08/2017 12:00 AM Transportation at D/C: Discharge Delay Reason: Follow-Up Date:09/08/2017 12:00 AM Discharge Slot: Final Diagnosis: Placement Information Patient Contact Information Contact Name:ALFONSO Relationship:Daughter Address: Work Phone: City: [facility] Phone: State/Zip Code: Email: Financial Information Financial Class: Primary Plan Desc:MEDICARE OUTPATIENT Primary Plan Number:[id number] Secondary Plan Desc: Secondary Plan Number: Assessment Information [facility] Initial CM Assessment Living Arrangements What is your living Answers: With Child(carmita) arrangement? Who do you live with? Type Of Residence What kind of residence do Answers: House you live in? Discharge Plan Comments Coordination Status Comments Notes: Patient is an 82yo female who was admitted observation status for shortness of breath, accelerated hypertension, hx of stroke, and persistant left eye blurriness. She recently moved here from [place] to live with her daughter, Chantel in [place]. No therapies have been ordered. D/C needs TBD. CM will follow. Date Signed: 09/08/2017 10:06 AM Electronically Signed By:Peggy Ivy LCSW Intervention Information Intervention Type:*DAVID-Signed Date of Service:09/08/2017 09:44 AM Patient Type:Observation Staff Member:Carlene Altamirano Hours: Discipline: Severity: Comment:
--- NOTE | 2017-09-09 12:31 | PDHOMEO2F ---
Home Oxygen Face to Face Home Orders: I certify that a physician or a nurse practitioner or physician's patent legal assistant has had a [id number] encounter with this patient on the date of this order due to the diagnosis listed, which relates to the primary reason the patient requires home oxygen. Alternative treatments have been tried, or considered, and deemed ineffective. It is anticipated that supplemental oxygen will result in improvement with treatment. Home oxygen qualifying diagnosis: COPD SpO2 on room air (%): 86 Frequency of home oxygen needed: continuous Home oxygen liters per minute: 2 Home oxygen delivery device: nasal cannula Concentrator: Yes E-tanks for mobility and back up: Yes If ordering portable O2, is the patient mobile in the home?: Yes I certify that, based on these findings, the home oxygen is medically necessary for this patient for the following length of time. Length of time home oxygen needed: 99 years
== END 2017-09-08 18:09 | disposition home or self-care (01) ==
LOC: F3E 18:53
PROVIDERS: ADMIT Internal Medicine; ATTEND Internal Medicine
DX: H53.8 Other visual disturbances (principal); I10 Essential (primary) hypertension; I48.0 Paroxysmal atrial fibrillation; E03.9 Hypothyroidism, unspecified; E78.5 Hyperlipidemia, unspecified; Z87.891 Personal history of nicotine dependence; Z79.01 Long term (current) use of anticoagulants
CPT/HCPCS: 71020; 93005; 93306; 93880; 97161; G0378; G8978; G8979; G8980

== ENCOUNTER → 2017-10-27 | Outpatient (CLI) | payer OTHER ==
[~2017-10-27] MED LIST: GADOBUTROL 10 ML VIAL IVP ONE
== END ==
LOC: FIMAGING 07:13
PROVIDERS: ATTEND Psychiatry & Neurology Neurology
DX: R25.9 Unspecified abnormal involuntary movements (principal); I65.22 Occlusion and stenosis of left carotid artery; Z86.73 Personal history of transient ischemic attack (TIA), and cerebral infarction without residual deficits
CPT/HCPCS: 70553; A9585

== ENCOUNTER → 2017-11-16 | Outpatient (CLI) | payer OTHER | LOC: FIMAGING 10:26 | PROVIDERS: ATTEND Psychiatry & Neurology Neurology | DX: H57.04 Mydriasis (principal); I65.22 Occlusion and stenosis of left carotid artery; G31.9 Degenerative disease of nervous system, unspecified; Z86.73 Personal history of transient ischemic attack (TIA), and cerebral infarction without residual deficits ==

== ENCOUNTER → 2017-11-19 | Outpatient (CLI) | payer OTHER | LOC: FIMAGING 07:56 | PROVIDERS: ATTEND Psychiatry & Neurology Neurology | DX: M48.54XS Collapsed vertebra, not elsewhere classified, thoracic region, sequela of fracture (principal); M50.33 Other cervical disc degeneration, cervicothoracic region; M25.78 Osteophyte, vertebrae; M48.03 Spinal stenosis, cervicothoracic region ==

== ENCOUNTER → 2017-11-30 | Outpatient (CLI) | payer OTHER ==
--- NOTE | 2017-11-30 11:13 | CPEEG ---
[f rep st] ELECTROENCEPHALOGRAM ELECTROENCEPHALOGRAM DATE OF STUDY: 11/30/2017 DATE OF INTERPRETATION: 11/30/2017. INTERPRETATION: This EEG contains a moderate degree of focal slowing over the left temporal head reg ion. These findings could be consistent with a moderate focal disturbance of cerebral function or a lesion in these regions. There were no potentially epileptogenic abnormalities present in the awake or sleep recordings. REPORT: This EEG contains 10 Hz alpha to the posterior head regions. There was a moderate degree of focal slowing over the left temporal head region composed of intermittent, polymorphic theta and low -amplitude delta activity. There was no abnormal epileptiform activation at rest, during photic stim ulation or hyperventilation. The patient became drowsy and fell asleep during the study. During payton wsiness, the patient had a drowsy pattern of frontal, intermittent rhythmic delta activity, which is a normal drowsy pattern for this age group. There was no abnormal activation during drowsiness, slee p, or during times of arousal. /[id number]/MODL
== END ==
LOC: FCPNEURO 07:47
PROVIDERS: ATTEND Psychiatry & Neurology Neurology
DX: R26.81 Unsteadiness on feet (principal); R94.01 Abnormal electroencephalogram [EEG]

== ENCOUNTER 2018-05-06 20:35 | Inpatient (IN) | payer OTHER ==
[2018-05-06] MEDS ORDERED: IPRATROPIUM/ALBUTEROL 3 ML DEYVIAL IH ONE (21:01)
[2018-05-06 21:07] LABS: PLATELET COUNT 146 10^3/uL (150-400)
--- NOTE | 2018-05-06 21:13 | EDPHY ---
HPI/HX/ROS/PE/MDM Narrative: CHIEF COMPLAINT: "I feel weak" HPI: The patient is an anticoagulated 83 y/o female with chronic hypoxemia arriving with her daughter complaining of feeling weak since Thursday, 4 days ago , and hypoxemia tonight. [id number] the last [place]. This weekend she developed sneezing and coughing and has had progressive weakness since then. She was evaluated two days ago for this and had a negative chest x-ray at that time. Tonight, she was unable to get her SpO2 above 85% with supplemental O2 and her doctor referred her to the ED. She used her inhaler once today, though her daughter notes she is able to use it up to 4 times daily. The patient denies fever, chest pain, abdominal pain, vomiting, diarrhea, urinary symptoms. Her daughter is concerned about her falling due to her current weakness. REVIEW OF SYSTEMS: Aside from elements discussed in the HPI, a comprehensive 10-point review of systems was reviewed and is negative. PMH: Atrial fibrillation - Eliquis; chronic hypoxemia - O2 when walking SOCIAL HISTORY: Daughter at bedside. Retired. Visiting for the last 3 weeks. PHYSICAL EXAM: Vitals: SpO2 92% on 3lpm, HR 110, BP 112/55. General:Patient is alert, in no acute distress. ENT:Eyes are normal to inspection. ENT inspection normal. Neck: Normal inspection. Full range of motion. Respiratory:No respiratory distress. Breath sounds normal bilaterally. No wheezes or crackles. Tachypneic. Cardiovascular: Tachycardic regular rate and rhythm. Strong peripheral pulses. Normal cap refill. Abdomen:The abdomen is nontender to palpation. There are no peritoneal signs. Back: Normal to inspection. No tenderness to palpation. Skin: Normal color. No rash. Warm and dry. Extremities: Normal appearance. Full range of motion. Neuro: Oriented x3. Normal motor function. Normal sensory function. ED Course: This is an 83 y/o female with a history of chronic hypoxemic failure who is visiting altitude and presents with a 4-day history of weakness and hypoxemia tonight. She is tachypneic and has an SpO2 of 92% on 3lpm. Lungs are clear, heart tachycardic. Plan for IV, labs, chest x-ray, and symptom management. Duo neb ordered. BNP 3800. Troponin negative. Chest x-ray: no infiltrate Spoke with hospitalist service. Dr. Kitchen accepts admission. MDM: This patient presents with dyspnea and increasing O2 requirements. The patient has numerous potential etiologies of worsening respiratory status - I see no signs of PE, PNA, but CHF and COPD certainly could be playing a significant role. - Data Points Imaging Results: Imaging Impressions Chest X-Ray 05/06/18 20:57 Impression: Stable chest with hyperexpansion and interstitial prominence likely related to emphysema/COPD with no definite acute findings. Imaging: I viewed and interpreted images myself Laboratory Results: Laboratory Results 05/06/18 20:55 05/06/18 20:55 05/06/18 05/06/18 05/06/18 21:14 20:55 20:55 WBC 5.12 10^3/uL 10^3/uL (3.80-9.50) RBC 4.17 10^6/uL L 10^6/uL (4.18-5.33) Hgb 13.7 g/dL g/dL (12.6-16.3) Hct 40.8 % % (38.0-47.0) MCV 97.8 fL fL (81.5-99.8) MCH 32.9 pg pg (27.9-34.1) MCHC 33.6 g/dL g/dL (32.4-36.7) RDW 13.2 % % (11.5-15.2) Plt Count 146 10^3/uL L 10^3/uL (150-400) MPV 9.8 fL fL (8.7-11.7) Neut % (Auto) 68.7 % % (39.3-74.2) Lymph % (Auto) 14.3 % L % (15.0-45.0) Logan % (Auto) 15.6 % H % (4.5-13.0) Eos % (Auto) 0.2 % L % (0.6-7.6) Baso % (Auto) 0.6 % % (0.3-1.7) Nucleat RBC Rel Count 0.0 % % (0.0-0.2) Absolute Neuts (auto) 3.52 10^3/uL 10^3/uL (1.70-6.50) Absolute Lymphs (auto) 0.73 10^3/uL L 10^3/uL (1.00-3.00) Absolute Monos (auto) 0.80 10^3/uL 10^3/uL (0.30-0.80) Absolute Eos (auto) 0.01 10^3/uL L 10^3/uL (0.03-0.40) Absolute Basos (auto) 0.03 10^3/uL 10^3/uL (0.02-0.10) Absolute Nucleated RBC 0.00 10^3/uL 10^3/uL (0-0.01) Immature Gran % 0.6 % % (0.0-1.1) Immature Gran # 0.03 10^3/uL 10^3/uL (0.00-0.10) Sodium 140 mEq/L mEq/L (135-145) Potassium 4.2 mEq/L mEq/L (3.3-5.0) Chloride 104 mEq/L mEq/L (97-110) Carbon Dioxide 21 mEq/l L mEq/l (22-31) Anion Gap 15 mEq/L mEq/L (8-16) BUN 22 mg/dL mg/dL (7-23) Creatinine 1.3 mg/dL H mg/dL (0.6-1.0) Estimated GFR 39 Glucose 114 mg/dL H mg/dL (70-100) Calcium 9.0 mg/dL mg/dL (8.5-10.4) POC Troponin I 0.02 ng/mL ng/mL (0.00-0.08) NT-Pro-B Natriuret Pep 3800 pg/mL H pg/mL (0-450) Medications Given: Discontinued Medications Albuterol/Ipratropium (Duoneb) 3 ml IH EDNOW ONE Stop: 05/06/18 21:02 Last Admin: 05/06/18 21:05 Dose: 3 ml Point of Care Test Results: Chemistry 05/06/18 21:14 POC Troponin I 0.02 ng/mL ng/mL (0.00-0.08) General Time Seen by Provider: 05/06/18 20:48 Initial Vital Signs: Initial Vital Signs Temperature (C) 37.0 C 05/06/18 20:37 Heart Rate 125 H 05/06/18 20:37 Respiratory Rate 18 05/06/18 20:37 Blood Pressure 90/72 L 05/06/18 20:37 O2 Sat (%) 88 L 05/06/18 20:37 O2 Delivery Mode Nasal Cannula,Humidified O2 (L/minute) 5 Allergies/Adverse Reactions: LYNDON Inhibitors Allergy (Severe, Verified 05/06/18 21:27) Other-Enter Comments Home Medications: Medication Instructions Recorded Apixaban [Eliquis] 5 mg PO BID 09/07/17 Aspirin EC [Aspirin EC 81 mg (*)] 81 mg PO DAILY 09/07/17 Herbals/Supplements -Info Only 1 ea PO DAILY 09/07/17 Levothyroxine [Synthroid 88 mcg 88 mcg PO DAILY06 09/07/17 (*)] Losartan Potassium [Cozaar 50 mg 50 mg PO DAILY 09/07/17 (*)] Metoprolol Tartrate [Lopressor 25 25 mg PO BID 09/07/17 mg (*)] Atorvastatin Calcium 80 mg PO HS 05/06/18 Ipratropium/Albuterol [Duoneb (*)] 3 ml IH QID #60 deyvial 05/09/18 guaiFENesin [Mucinex 600 MG (*)] 1,200 mg PO BID tab.er 05/09/18 predniSONE 40 mg PO DAILY #8 tablet 05/09/18 Departure - Departure Disposition: [facility] Inpatient Acute Clinical Impression: Chronic obstructive pulmonary disease with acute exacerbation, Hypoxemia, Weakness Acute exacerbation of congestive heart failure Qualifiers: Heart failure type: unspecified Qualified Code(s): I50.9 - Heart failure, unspecified Condition: Fair Report Scribed for: Asif Stephens Report Scribed by: Salma Woo Date of Report: 05/06/18 Time of Report: 21:13 Physician Review and Approval Statement: Portions of this note were transcribed by an ED scribe. I personally performed the history, physical exam, and medical decision making; and confirm the accuracy of the information in the transcribed note.
[2018-05-06] MEDS ORDERED: ONDANSETRON DISINTEGRATING 4 MG TAB PO PRN (22:11)
[2018-05-06] MEDS ORDERED: ALBUTEROL 3 ML DEYVIAL IH PRN (22:11)
[2018-05-06] MEDS ORDERED: ONDANSETRON 4 MG/2 ML VIAL IVP PRN (22:11)
[2018-05-06] MEDS ORDERED: ACETAMINOPHEN 325 MG TAB PO PRN (22:11)
--- NOTE | 2018-05-06 22:25 | CPEKG ---
Heart Rate: 114 RR Interval: 526 QRSD Interval: 88 QT Interval: 316 QTC Interval: 436 QRS [place]: -15 T Wave [place]: -59 EKG Severity - ABNORMAL ECG - EKG Impression: ATRIAL FIBRILLATION, V-RATE 93-136 EKG Impression: PROBABLE LVH WITH SECONDARY REPOL ABNRM Electronically Signed By: Mary Choudhary 07-May-2018 21:00:41
[2018-05-06] MEDS ORDERED: APIXABAN 5 MG TAB PO ONE (22:53)
[2018-05-06] MEDS ORDERED: METOPROLOL TARTRATE 25 MG TAB PO ONE (22:53)
--- NOTE | 2018-05-07 00:05 | PDGENHP ---
History and Physical - Chief Complaint Shortness of breath - History of Present Illness 83 yo F w/ hx of AF, dCHF, pHTN, and ?RAD presents with cough and shortness of breath. The patient tells me she has been feeling poorly for 5 days. She developed a cough productive of clear sputum followed by progressive fatigue and SOB. She usually uses 2 L/min O2 with activity only. Over the last few days she has been mildly hypoxic (mid 80's) despite using 2 L O2 continuously. As her symptoms continued to progress she came to the ED for evaluation. She denies fever, chest pain, leg swelling, and orthopnea. In the ED her evaluation has been mostly unremarkable aside form mild hypoxia and wheezing noted on my exam. Monitor shows AF with rates in the low 100's. Case discussed with ED physician Dr. Stephens, previous records reviewed in EMR. History Information - Allergies/Home Medication List Allergies/Adverse Reactions: LYNDON Inhibitors Allergy (Severe, Verified 05/06/18 21:27) Other-Enter Comments Home Medications: Apixaban [Eliquis] 5 mg PO BID 09/07/17 [Last Taken 05/06/18] Aspirin EC [Aspirin EC 81 mg (*)] 81 mg PO DAILY 09/07/17 [Last Taken 05/06/18] Herbals/Supplements -Info Only 1 ea PO DAILY 09/07/17 [Last Taken Unknown] Levothyroxine [Synthroid 88 mcg (*)] 88 mcg PO DAILY06 09/07/17 [Last Taken 11/22] Losartan Potassium [Cozaar 50 mg (*)] 50 mg PO DAILY 09/07/17 [Last Taken ] Metoprolol Tartrate [Lopressor 25 mg (*)] 25 mg PO BID 09/07/17 [Last Taken 11/22] Atorvastatin Calcium 80 mg PO HS 05/06/18 [Last Taken 05/05/18] I have personally reviewed and updated: family history, medical history - Past Medical History atrial fibrillation, CHF Additional medical history: RAD - Surgical History Reports: no pertinent surgical hx - Family History Positive for: cancer Additional family history: Denies family hx of emphysema or asthma - Social History Smoking Status: Former smoker Review of Systems Review of Systems: ROS: 10pt was reviewed & negative except for what was stated in HPI & below Physical Exam Physical Exam: Temp Pulse Resp BP Pulse Ox 36.8 C 116 H 28 H 107/69 95 05/06/18 23:41 05/06/18 23:44 05/06/18 23:41 05/06/18 23:44 05/06/18 23:41 O2 (L/minute) 4 Constitutional: no apparent distress, appears nourished Eyes: PERRL, EOMI Ears, Nose, Mouth, Throat: moist mucous membranes, no oral mucosal ulcers Cardiovascular: irregularly irregular, No edema Respiratory: no respiratory distress, expiratory wheeze Gastrointestinal: normoactive bowel sounds, soft, non-tender abdomen Skin: warm, normal color Musculoskeletal: full muscle strength, no muscle tenderness Neurologic: AAOx3, CN II-XII Intact Psychiatric: interacting appropriately, not anxious Lab Data & Imaging Review 05/06/18 20:55 05/06/18 20:55 WBC 5.12 10^3/uL (3.80-9.50) 05/06/18 20:55 RBC 4.17 10^6/uL (4.18-5.33) L 05/06/18 20:55 Hgb 13.7 g/dL (12.6-16.3) 05/06/18 20:55 Hct 40.8 % (38.0-47.0) 05/06/18 20:55 MCV 97.8 fL (81.5-99.8) 05/06/18 20:55 MCH 32.9 pg (27.9-34.1) 05/06/18 20:55 MCHC 33.6 g/dL (32.4-36.7) 05/06/18 20:55 RDW 13.2 % (11.5-15.2) 05/06/18 20:55 Plt Count 146 10^3/uL (150-400) L 05/06/18 20:55 MPV 9.8 fL (8.7-11.7) 05/06/18 20:55 Neut % (Auto) 68.7 % (39.3-74.2) 05/06/18 20:55 Lymph % (Auto) 14.3 % (15.0-45.0) L 05/06/18 20:55 Acadia % (Auto) 15.6 % (4.5-13.0) H 05/06/18 20:55 Eos % (Auto) 0.2 % (0.6-7.6) L 05/06/18 20:55 Baso % (Auto) 0.6 % (0.3-1.7) 05/06/18 20:55 Nucleat RBC Rel Count 0.0 % (0.0-0.2) 05/06/18 20:55 Absolute Neuts (auto) 3.52 10^3/uL (1.70-6.50) 05/06/18 20:55 Absolute Lymphs (auto) 0.73 10^3/uL (1.00-3.00) L 05/06/18 20:55 Absolute Monos (auto) 0.80 10^3/uL (0.30-0.80) 05/06/18 20:55 Absolute Eos (auto) 0.01 10^3/uL (0.03-0.40) L 05/06/18 20:55 Absolute Basos (auto) 0.03 10^3/uL (0.02-0.10) 05/06/18 20:55 Absolute Nucleated RBC 0.00 10^3/uL (0-0.01) 05/06/18 20:55 Immature Gran % 0.6 % (0.0-1.1) 05/06/18 20: Immature Gran # 0.03 10^3/uL (0.00-0.10) 05/06/18 20:55 Sodium 140 mEq/L (135-145) 05/06/18 20:55 Potassium 4.2 mEq/L (3.3-5.0) 05/06/18 20:55 Chloride 104 mEq/L (97-110) 05/06/18 20:55 Carbon Dioxide 21 mEq/l (22-31) L 05/06/18 20:55 Anion Gap 15 mEq/L (8-16) 05/06/18 20:55 BUN 22 mg/dL (7-23) 05/06/18 20:55 Creatinine 1.3 mg/dL (0.6-1.0) H 05/06/18 20:55 Estimated GFR 39 05/06/18 20:55 Glucose 114 mg/dL (70-100) H 05/06/18 20:55 Calcium 9.0 mg/dL (8.5-10.4) 05/06/18 20:55 POC Troponin I 0.02 ng/mL (0.00-0.08) 05/06/18 21:14 NT-Pro-B Natriuret Pep 3800 pg/mL (0-450) H 05/06/18 20:55 Procalcitonin 0.18 ng/mL (0.02-0.10) H 05/06/18 20:55 Imaging Review: Imaging Impressions Chest X-Ray 05/06/18 20:57 Impression: Stable chest with hyperexpansion and interstitial prominence likely related to emphysema/COPD with no definite acute findings. Visualized and Interpreted EKG results: Yes EKG Interpretation: Positive for: other (Atrial fibrillation) Assessment & Plan Assessment: 83 yo F w/ hx of AF, dCHF, pHTN, and ?RAD presents with likely RAD exacerbation. Plan: 1. RAD w/ acute exacerbation - Diagnosis based on cough productive of sputum, hypoxia, and expiratory wheezing noted on exam. Afebrile with normal WBC and no clear infiltrate on CXR make viral trigger most likely. Patient's daughter tells me recent formal evaluation for COPD was negative despite patient's 40 year smoking history and hyperexpanded chest seen on CXR. - Admit for observation - Respiratory PCR, procalcitonin ordered - Prednisone x5 days - Duonebs QID raymon, albuterol q2h PRN - Consider antibiotics if not improving, will hold off for now 2. dCHF - Last EF 69%; patient appears overall euvolemic with no lower extremity edema or signs of volume overload on CXR. BNP is elevated in the 3000' s but patient denies orthopnea or other symptoms of heart failure. Not on diuretics as outpatient. - Monitor I/Os, daily weights, cardiac diet 3. Acute on chronic HRF - Mild, currently requiring 2-3 L/min O2 via NC to maintain saturation >90%. I suspect this is related to RAD exacerbation and afib w/ RVR as a result of acute distress. Patient wears 2 L/min O2 only with activity at baseline. - Acute management as above - Incentive spirometry, wean O2 as able 4. AF - Known history of AF; takes metoprolol 25 mg PO BID and apixaban for anticoagulation. HR in the low 100's currently and hemodynamically stable. - Continue home metoprolol, apixaban - Monitor on telemetry 5. pHTN - Mildly elevated RVSP on latest TTE, I suspect this may be contributing to mild O2 req at baseline. 6. CKD - Cr 1.3 on admission, which is near previous values. - Renally dose medications, avoid nephrotoxic agents Diet - Cardiac Code - Full Ppx - SQH BID Dispo - Admit under observation status
[2018-05-07 04:32] LABS: PLATELET COUNT 125 10^3/uL (150-400)
[2018-05-07] MEDS: IPRATROPIUM/ALBUTEROL 3 ML DEYVIAL IH SCH ×4 (05:31→21:13)
[2018-05-07] MEDS: predniSONE 20 MG TAB PO SCH (09:31)
--- NOTE | 2018-05-07 12:30 | ASMTCMCOM ---
CM Note CM Note Notes: 05/07/2018 Case Management Note Discussed pt during rounds this morning with daughter Chantel [phone]. Pt admitted for evaluation and treatment for weakness and SOB. Per daughter pt recently returned to [place] from a trip to [place] where pt home is for sale. When in [place] pt lives with daughter Chantel. Pt is independent in ADL's. There are no PT or OT evals ordered at this time. Case Management d/c poc: independent with follow up as directed. Case Management available if needs change. Date Signed: 05/07/2018 12:28 PM Electronically Signed By:Venice Avila RN
--- NOTE | 2018-05-07 17:30 | HOSPPROG ---
Hospitalist Progress Note Assessment/Plan: 83 yo F w/ hx of AF on OAC, diastolic CHF, pHTN, and ?RAD presents with upper respiratory infection and hypoxemia. Plan: 1. Acute on chronic hypoxemic respiratory failure: Due to #2. Stable on 4-5L NC , up from 2L w/exertion only. Goal >90%. 2. Acute exacerbation of reactive airways disease: Precipitated by RSV. Contact/ droplet precautions. Treating with prednisone, scheduled duonebs. She may have underlying copd/emphysema given her hyperexpanded lungs and a smoking history. 3. Chronic diastolic CHF: Last EF 69%; patient appears overall euvolemic. Not on diuretics. 4. AF: Rates controlled. Continue home metoprolol and apixaban. 5. pHTN: Mildly elevated RVSP on latest TTE, I suspect this may be contributing to mild O2 req at baseline. 6. CKD: Cr 1.3 on admission, which is near previous values. Renally dose medications, avoid nephrotoxic agents Diet: Cardiac Code: Full Ppx: SQH BID Dispo: Change to inpatient admission for management of ongoing hypoxemia. Unsafe to discharge to home at present. Subjective: Still significantly short of breath with any activity and having coughing spells. Denies fever. Objective: Vital Signs Temp Pulse Resp BP Pulse Ox 37.1 C 95 20 120/85 H 93 05/07/18 11:22 05/07/18 15:55 05/07/18 15:55 05/07/18 11:22 05/07/18 15:55 Microbiology 05/06/18 23:50 Respiratory Panel (PCR) - Final Nasal, Sinus - Swab Respiratory Syncytial Virus Laboratory Results 05/07/18 03:08 05/07/18 03:08 05/06/18 05/07/18 05/08/18 05:59 05:59 05:59 Intake Total 300 Output Total 100 Balance 200 - Physical Exam Constitutional: no apparent distress, appears nourished, not in pain Eyes: PERRL, anicteric sclera, EOMI Ears, Nose, Mouth, Throat: moist mucous membranes, hearing normal, ears appear normal, no oral mucosal ulcers Cardiovascular: tachycardia, other (regular rhythm), No JVD, No edema Respiratory: reduced air movement, expiratory wheeze, other (prolonged expiratory phase) Gastrointestinal: normoactive bowel sounds, soft, non-tender abdomen, no palpable masses Skin: no rashes or abrasions, no fluctuance, no induration Musculoskeletal: full muscle strength, no muscle tenderness, normal joint ROM Neurologic: AAOx3, sensation intact bilaterally Psychiatric: interacting appropriately, not anxious, not encephalopathic, thought process linear ICD10 Worksheet Patient Problems: Problems Problem Status Onset Acute exacerbation of congestive heart failure Acute Chronic obstructive pulmonary disease with acute exacerbation Acute Hypoxemia Acute Weakness Acute Dyspnea Acute
[2018-05-07] MEDS: ATORVASTATIN CALCIUM 40 MG TAB PO SCH (20:41)
[2018-05-07] MEDS: METOPROLOL TARTRATE 25 MG TAB PO SCH (20:42)
[2018-05-07] MEDS: APIXABAN 5 MG TAB PO SCH (20:42)
[2018-05-08] MEDS: LEVOTHYROXINE 88 MCG TAB PO SCH (05:28)
[2018-05-08] MEDS: IPRATROPIUM/ALBUTEROL 3 ML DEYVIAL IH SCH ×4 (06:24→20:47)
[2018-05-08] MEDS: ASPIRIN EC 81 MG TAB PO SCH (08:19)
[2018-05-08] MEDS: APIXABAN 5 MG TAB PO SCH ×2 (08:19→21:47)
[2018-05-08] MEDS: METOPROLOL TARTRATE 25 MG TAB PO SCH ×2 (08:19→21:47)
[2018-05-08] MEDS: LOSARTAN POTASSIUM 50 MG TAB PO SCH (08:19)
[2018-05-08] MEDS: predniSONE 20 MG TAB PO SCH (08:19)
--- NOTE | 2018-05-08 14:52 | HOSPPROG ---
Hospitalist Progress Note Assessment/Plan: 83-year-old with a history of AFib on oral anticoagulation, pulmonary hypertension and probable COPD presents with cough and hypoxia diagnosed with RSV infection # COPD exacerbation with acute on chronic hypoxemic respiratory failure secondary to RSV * Continue steroids and nebs * Increased oxygen needs * Add Mucinex, discussed with RT regarding possible Mucomyst nebulizer # AFib, rate controlled continue metoprolol and Eliquis # pulmonary hypertension with mildly elevated RVSP # chronic kidney disease with a creatinine of 1.3, stage III Disposition: Will need additional midnight stay for management of ongoing hypoxemia and COPD exacerbation due to RSV Subjective: Patient new to me and chart reviewed. Feeling better but has a ongoing worsening cough feels like she can't bring up her secretions. Typically 1-2 L at baseline in [place] however she only uses her oxygen occasionally Objective: Vital Signs Temp Pulse Resp BP Pulse Ox 36.6 C 83 20 104/59 L 94 05/08/18 11:54 05/08/18 12:14 05/08/18 12:14 05/08/18 11:54 05/08/18 12:14 Microbiology 05/06/18 23:50 Respiratory Panel (PCR) - Final Nasal, Sinus - Swab Respiratory Syncytial Virus Laboratory Results 05/07/18 03:08 05/07/18 03:08 05/07/18 05/08/18 05/09/18 05:59 05:59 05:59 Intake Total 300 500 Output Total 100 300 Balance 200 -300 500 - Physical Exam Constitutional: not in pain, obese Eyes: PERRL Ears, Nose, Mouth, Throat: moist mucous membranes, hard of hearing Cardiovascular: regular rate and rhythym Respiratory: clear to auscultation, reduced air movement, respiratory distress, No expiratory wheeze, No inspiratory crackles Gastrointestinal: normoactive bowel sounds, soft, non-tender abdomen Genitourinary: no bladder fullness Skin: warm, normal color Neurologic: AAOx3 Psychiatric: interacting appropriately, not anxious ICD10 Worksheet Patient Problems: Problems Problem Status Onset Hypoxemia Acute Dyspnea Acute Chronic obstructive pulmonary disease with acute exacerbation Acute Weakness Acute Acute exacerbation of congestive heart failure Acute
[2018-05-08] MEDS: guaiFENesin 600 MG TAB.ER PO SCH ×2 (15:54→21:46)
--- NOTE | 2018-05-08 17:36 | PDMN ---
Medical Necessity Medical necessity: change to IP status per MD order as of 05/07/18. MCG M100 COPD , 83 y/o w/ cough/hypoxia 2nd COPD exacerbation. Acute on chronic hypoxemic resp fx 2nd RSV. Increased O2 needs. Hx Afib, pulm HTN and chronic kidney disease creat 1.3, stage III. Will need additional [place] stay for management of ongoing hypoxemia and COPD exacerbation due to RSV
[2018-05-08] MEDS: ATORVASTATIN CALCIUM 40 MG TAB PO SCH (21:47)
[2018-05-09] MEDS: LEVOTHYROXINE 88 MCG TAB PO SCH (05:32)
[2018-05-09] MEDS: IPRATROPIUM/ALBUTEROL 3 ML DEYVIAL IH SCH ×2 (06:18→11:20)
[2018-05-09] MEDS: METOPROLOL TARTRATE 25 MG TAB PO SCH (08:58)
[2018-05-09] MEDS: LOSARTAN POTASSIUM 50 MG TAB PO SCH (09:00)
[2018-05-09] MEDS: predniSONE 20 MG TAB PO SCH (09:00)
[2018-05-09] MEDS: guaiFENesin 600 MG TAB.ER PO SCH (09:01)
[2018-05-09] MEDS: APIXABAN 5 MG TAB PO SCH (09:01)
[2018-05-09] MEDS: ASPIRIN EC 81 MG TAB PO SCH (09:01)
[2018-05-09 11:18] VITALS: BP 116/66
--- NOTE | 2018-05-09 13:09 | PDIAF ---
- Diagnosis Diagnosis: RSV viral pna, COPD exacerbation, deconditioning, afib Code Status: Full Code - Medication Management Discharge Medications: Medications to Continue on Transfer Apixaban [Eliquis] 5 mg PO BID 09/07/17 [Last Taken 05/06/18] Aspirin EC [Aspirin EC 81 mg (*)] 81 mg PO DAILY 09/07/17 [Last Taken 05/06/18] Herbals/Supplements -Info Only 1 ea PO DAILY 09/07/17 [Last Taken Unknown] Levothyroxine [Synthroid 88 mcg (*)] 88 mcg PO DAILY06 09/07/17 [Last Taken 11/22] Losartan Potassium [Cozaar 50 mg (*)] 50 mg PO DAILY 09/07/17 [Last Taken ] Metoprolol Tartrate [Lopressor 25 mg (*)] 25 mg PO BID 09/07/17 [Last Taken 11/22] Atorvastatin Calcium 80 mg PO HS 05/06/18 [Last Taken 05/05/18] Ipratropium/Albuterol [Duoneb (*)] 3 ml IH QID #60 deyvial 05/09/18 [Last Taken Unknown] guaiFENesin [Mucinex 600 MG (*)] 1,200 mg PO BID tab.er 05/09/18 [Last Taken Unknown] predniSONE 40 mg PO DAILY #8 tablet 05/09/18 [Last Taken Unknown] Discharge Medications: Refer to the Discharge Home Medication list for PRN reason. - Orders Services needed: Home Care, Registered Nurse, Physical Therapy, Occupational Therapy Home Care Face to Face: I certify that this patient was under my care and that I had the required [id number] encounter meeting the encounter requirements on the discharge day. My findings support the fact that the patient is homebound as defined in Home Care Face to Face Continued: CMS Chapter 7 Medicare Benefits Manual 30.1.1 , The condition of the patient is such that there exists a normal inability to leave home and consequently, leaving home would require a considerable and taxing effort. Isolation Type: Contact Isolation, Droplet Isolation Diet Recommendation: no restrictions on diet Diet Texture: Regular Texture Diet Additional Instructions: FU in a week with PCP - Follow Up Care Current Providers and Referrals: Roya Zhang MD [Primary Care Provider] - As per Instructions
--- NOTE | 2018-05-09 13:39 | GDS ---
[f rep st] DISCHARGE SUMMARY DIAGNOSES: 1. Acute on chronic respiratory failure secondary to respiratory syncytial virus infection with acut e chronic obstructive pulmonary disease exacerbation. 2. History of atrial fibrillation. 3. Diastolic congestive heart failure. 4. Pulmonary hypertension. 5. Chronic kidney disease with baseline creatinine of 1.3. HOSPITAL COURSE: The patient is a very nice 83-year-old woman with a history of AFib on oral anticoa gulation, pulmonary hypertension, and probable COPD with significant history of tobacco use, presents with cough and hypoxia. She was diagnosed with RSV infection and admitted to the hospital. Initial ly, she was requiring high oxygen of 5-6 L/minute. After admission she was treated with supportive c are, steroids, and nebulizers for COPD exacerbation due to RSV, and her oxygen needs decreased down t o 3 L at the day of discharge. She had been living in [place] and recently moved up to [place]. During that time, they noted that her oxygen needs increased. In [place], she typically used 1-2 L on an as-needed basis. Since moving to [place], she has been using 2-3 L of oxygen more consiste ntly. After being in the hospital, she is feeling better, ambulating with diminished cough, however, still requires oxygen on discharge. CONDITION ON DISCHARGE: Good. Vital signs are stable with a heart rate of 84. Blood pressure 116/6 6. She is 94% on 3 L nasal cannula. She is alert. She is oriented. She is ambulating with a walke r. Lung colunga are improved, but diminished bilaterally. DISCHARGE MEDICATIONS: Please see discharge medication form. 1. She will continue prednisone for 4 more days. 2. I did give her prescription for nebulizer with DuoNebs. FOLLOWUP INSTRUCTIONS: She needs to follow up with her primary care provider within a week. I will also set up home care for a nursing visit, physical and occupational therapy. Total time spent with patient and family on day of discharge and coordination of care is 35 minutes. /[id number]/MODL
--- NOTE | 2018-05-09 15:47 | ASMTDCNOTE ---
Case Management Discharge Discharge Order Complete? Answers: Yes Patient to Obtain Answers: via Family Medications Transportation Arranged Answers: Family/Friends Transport will Pick (Date 05/09/2018 02:00 PM & Time) Faxed Final Orders Answers: Yes Notes: [facility] Notified Answers: Yes Notes: Daughter to transport Discharge Comments Notes: Patient has been discharged home with daughter. She will have [facility] RN/PT/OT. Date Signed: 05/09/2018 03:46 PM Electronically Signed By:Nasrin Thomson LCSW
--- NOTE | 2018-05-09 15:58 | ASDISCHSUM ---
Discharge Information Plan Status:Home with Home Health Medically Cleared to Leave:05/09/2018 Discharge Date:05/09/2018 03:04 PM CM D/C Disposition:Home Health Service ADT D/C Disposition:Home Health Service Projected Discharge Date:05/09/2018 02:00 PM Transportation at D/C:Family Discharge Delay Reason: Follow-Up Date:05/09/2018 02:00 PM Discharge Slot:2 - 12:01 pm - 18:00 pm Final Diagnosis:Acute Respiratory Failure, CHF, Pulm HTN, CKD Placement Information Referral Type:*Home Health Care Services Referral ID:[id number] Provider Name:[facility] [place] Address 1:[address] [place] [address], [place] [address] Address 2: City:[place] Selection Factors: State:[place] Patient Contact Information Contact Name:ALFONSO Relationship:Daughter Address:[address] Work Phone: City:[place] Alternate Phone: [facility]/Zip Code:[place] [address] Email: Financial Information Financial Class:Medicare Primary Plan Desc:MEDICARE OUTPATIENT Primary Plan Number:[id number] Secondary Plan Desc:12[employer] LIFE AND CASUALTY Secondary Plan Number:[id number] Assessment Information LACE LACE Length of stay for Answers: 2 days current admission Comorbidities - select Answers: Cerebrovascular disease all that apply (CVA, TIA, aneurysms, vasc ular dementia) Congestive heart failure Other Notes: AFib; HTN # of Emergency department Answers: 1-2 visits in the last 6 months Score: 7 Date Signed: 05/09/2018 03:57 PM Electronically Signed By:Nasrin Thomson LCSW [facility] CM Progress Note CM Note CM Note Notes: 05/07/2018 Case Management Note Discussed pt during rounds this morning with daughter Chantel [phone]. Pt admitted for evaluation and treatment for weakness and SOB. Per daughter pt recently returned to [place] from a trip to [place] where pt home is for sale. When in [place] pt lives with daughter Chantel. Pt is independent in ADL's. There are no PT or OT evals ordered at this time. Case Management d/c poc: independent with follow up as directed. Case Management available if needs change. Date Signed: 05/07/2018 12:28 PM Electronically Signed By:Venice Avila RN Case Management Discharge Plan Note Case Management Discharge Discharge Order Complete? Answers: Yes Patient to Obtain Answers: via Family Medications Transportation Arranged Answers: Family/Friends Transport will Pick (Date 05/09/2018 02:00 PM & Time) Faxed Final Orders Answers: Yes Notes: [facility] Notified Answers: Yes Notes: Daughter to transport Discharge Comments Notes: Patient has been discharged home with daughter. She will have [facility] RN/PT/OT. Date Signed: 05/09/2018 03:46 PM Electronically Signed By:Nasrin Thomson LCSW Intervention Information Intervention Type:*HERNANDEZ-Signed Date of Service:05/07/2018 10:22 AM Patient Type:Observation Staff Member:Carlene Altamirano Hours: Discipline: Severity: Comment: Intervention Type:*IM-Signed Date of Service:05/09/2018 03:57 PM Patient Type:Inpatient Staff Member:JUAN Thomson Judith Hours:0.25 Discipline:Change Director Severity: Comment:
== END 2018-05-09 15:04 | disposition home health service (06) | DRG 152 ==
LOC: F2W 23:15 → OBSVTOIN 05-07 17:35
PROVIDERS: ADMIT Student in an Organized Health Care Education/Training Program; ATTEND Student in an Organized Health Care Education/Training Program
DX: J06.9 Acute upper respiratory infection, unspecified (principal); J96.20 Acute and chronic respiratory failure, unspecified whether with hypoxia or hypercapnia; J44.1 Chronic obstructive pulmonary disease with (acute) exacerbation; I50.30 Unspecified diastolic (congestive) heart failure; B97.4 Respiratory syncytial virus as the cause of diseases classified elsewhere; I48.91 Unspecified atrial fibrillation; I27.20 Pulmonary hypertension, unspecified; N18.3 Chronic kidney disease, stage 3 (moderate); Z79.01 Long term (current) use of anticoagulants; Z87.891 Personal history of nicotine dependence
CPT/HCPCS: 84484-PO; 97116-GP; 97161-GP; 97530-GP; G0378; G8978-GP-CK; G8979-GP-CI; J7512

== ENCOUNTER 2018-06-16 07:25 | Emergency (ER) | payer OTHER ==
--- NOTE | 2018-06-16 07:26 | EDPHY ---
HPI/HX/ROS/PE/MDM Narrative: CHIEF COMPLAINT: Right leg injury HPI: The patient is an anticoagulated (Eliquis) 83 y/o female with a history of atrial fibrillation and chronic hypoxemia (on supplemental O2) complaining of a right leg injury after dropping an oxygen bottle on that leg. The patient was bending down to put on her shoes when she subsequently dropped the oxygen bottle on her leg. Her daughter became concerned about the bleeding as the patient is on Eliquis. She denies any other the injury, headache, neck pain, chest pain, shortness of breath, abdominal pain, urinary or bowel complaints, numbness, paresthesias, fever. REVIEW OF SYSTEMS: Aside from elements discussed in the HPI, a comprehensive 10 system review of systems is otherwise negative. PMH: Atrial fibrillation - Eliquis; chronic hypoxemia - O2 when walking SOCIAL HISTORY: Daughter at bedside, lives in [place], single, retired PHYSICAL EXAM: General: Patient is alert, in no acute distress. Skin: 1cm skin tear to the anterior portion of the right lower leg with minimal bleeding. Normal color. No rash. Warm and dry. Neuro: Oriented x3. Normal motor function. Normal sensory function. ED Course: 739: Reassessed patient; at this time the patient does not need a laceration repair and the bleeding is minimal. The emergency room tech has placed Surgicel and Coban on the skin tear. Return precautions provided; patient is comfortable with this plan. General Time Seen by Provider: 06/16/18 07:25 Initial Vital Signs: Initial Vital Signs Temperature (C) 36.5 C 06/16/18 07:28 Heart Rate 83 06/16/18 07:28 Respiratory Rate 18 06/16/18 07:28 Blood Pressure 142/79 H 06/16/18 07:28 O2 Sat (%) 94 06/16/18 07:28 O2 Delivery Mode Nasal Cannula O2 (L/minute) 3 Allergies/Adverse Reactions: LYNDON Inhibitors Allergy (Severe, Verified 06/16/18 07:27) Other-Enter Comments Home Medications: Medication Instructions Recorded Apixaban [Eliquis] 5 mg PO BID 09/07/17 Aspirin EC [Aspirin EC 81 mg (*)] 81 mg PO DAILY 09/07/17 Herbals/Supplements -Info Only 1 ea PO DAILY 09/07/17 Levothyroxine [Synthroid 88 mcg 88 mcg PO DAILY06 09/07/17 (*)] Losartan Potassium [Cozaar 50 mg 50 mg PO DAILY 09/07/17 (*)] Metoprolol Tartrate [Lopressor 25 25 mg PO BID 09/07/17 mg (*)] Atorvastatin Calcium 80 mg PO HS 05/06/18 Ipratropium/Albuterol [Duoneb (*)] 3 ml IH QID #60 deyvial 05/09/18 guaiFENesin [Mucinex 600 MG (*)] 1,200 mg PO BID tab.er 05/09/18 predniSONE 40 mg PO DAILY #8 tablet 05/09/18 Departure - Departure Disposition: Home, Routine, Self-Care Clinical Impression: Skin tear of right lower leg without complication Qualifiers: Encounter type: initial encounter Qualified Code(s): S81.811A - Laceration without foreign body, right lower leg, initial encounter Condition: Good Instructions: Skin Tear (ED) Additional Instructions: If the skin tear is still significantly bleeding tomorrow, please return to the emergency department. Return to the Emergency Department for fever, redness, discharge from wound, increasing pain or other worsening of condition. Referrals: Roya Zhang MD [Primary Care Provider] - As per Instructions Report Scribed for: Asif Stephens Report Scribed by: Charissa Doll Date of Report: 06/16/18 Time of Report: 07:26 Physician Review and Approval Statement: Portions of this note were transcribed by an ED scribe. I personally performed the history, physical exam, and medical decision making; and confirm the accuracy of the information in the transcribed note.
[2018-06-16 07:30] VITALS: BP 142/79
== END 2018-06-16 07:45 | disposition home or self-care (01) ==
DX: S81.811A Laceration without foreign body, right lower leg, initial encounter (principal); J96.11 Chronic respiratory failure with hypoxia; I48.91 Unspecified atrial fibrillation; W20.8XXA Other cause of strike by thrown, projected or falling object, initial encounter; Y92.009 Unspecified place in unspecified non-institutional (private) residence as the place of occurrence of the external cause

== ENCOUNTER → 2018-06-26 | Outpatient (CLI) | payer OTHER | LOC: FIMAGING 06-25 08:17 | PROVIDERS: ATTEND Neurological Surgery | DX: I71.2 Thoracic aortic aneurysm, without rupture (principal); M51.34 Other intervertebral disc degeneration, thoracic region; M53.84 Other specified dorsopathies, thoracic region; M40.294 Other kyphosis, thoracic region ==

== ENCOUNTER → 2018-06-29 | Outpatient (CLI) | payer OTHER | LOC: BHFA 09:30 | PROVIDERS: ATTEND Internal Medicine Cardiovascular Disease | DX: I48.91 Unspecified atrial fibrillation (principal) ==

== ENCOUNTER 2018-08-04 17:51 | Emergency (ER) | payer OTHER ==
--- NOTE | 2018-08-04 18:23 | EDPHY ---
H & P Stated Complaint: fell backwards and hit back of head going up a stair Time Seen by Provider: 08/04/18 18:11 HPI/ROS: CHIEF COMPLAINT: Head injury HISTORY OF PRESENT ILLNESS: 83-year-old female with atrial fibrillation on Eliquis presents after head injury. She was climbing a stair, lost her balance and fell backwards. She landed on her buttocks 1st and then hit her head on the pavement. Initially she had a headache for over 10, no loss of consciousness or amnesia. The headache has now resolved. No neck pain, back pain or other injuries. REVIEW OF SYSTEMS: complete 10 point ROS negative except as noted in the HPI - Personal History Current Tetanus/Diphtheria Vaccine: Yes Current Tetanus Diphtheria and Acellular Pertussis (TDAP): Yes Tetanus Vaccine Date: < 10 years - Medical/Surgical History Hx Asthma: No Hx Chronic Respiratory Disease: Yes Hx Diabetes: No Hx Cardiac Disease: Yes Hx Renal Disease: No Hx Cirrhosis: No Hx Alcoholism: No Hx HIV/AIDS: No Hx Splenectomy or Spleen Trauma: No Other PMH: a-fib, cva, htn, tia, hypothyroid, AORTIC ANEURYSM, R CAROTIC ARTER OCCLUSION - Social History Smoking Status: Former smoker Alcohol Use: Sober - Physical Exam Exam: General Appearance: Alert, no distress Head: 4 cm hematoma posteriorly Eyes: No conjunctival erythema, PERRLA, EOMI ENT, Mouth: No hemotympanum, no oral trauma, no bony tenderness Neck: Nontender, full range of motion without pain Respiratory: No chest wall tenderness, lungs clear bilaterally Cardiovascular: Regular rate and rhythm Abdomen: Abdomen is soft and nontender Buttocks: Normal inspection, no ecchymosis Skin: No lacerations, no abrasions Back: No midline T/L/S tenderness Extremities: Pelvis is stable and nontender; no extremity tenderness or deformity, range of motion without pain Neurological: A&Ox3, normal motor function, normal sensory exam, cranial nerves intact Psychiatric: Mood and affect normal Constitutional: Initial Vital Signs Temperature (C) 36.5 C 08/04/18 18:01 Heart Rate 94 08/04/18 18:01 Respiratory Rate 16 08/04/18 18:01 Blood Pressure 160/82 H 08/04/18 18:01 O2 Sat (%) 94 08/04/18 18:01 O2 Delivery Mode Nasal Cannula O2 (L/minute) 2.5 Allergies/Adverse Reactions: LYNDON Inhibitors Allergy (Severe, Verified 08/04/18 18:04) Other-Enter Comments Home Medications: Medication Instructions Recorded Apixaban [Eliquis] 5 mg PO BID 09/07/17 Aspirin EC [Aspirin EC 81 mg (*)] 81 mg PO DAILY 09/07/17 Herbals/Supplements -Info Only 1 ea PO DAILY 09/07/17 Levothyroxine [Synthroid 88 mcg 88 mcg PO DAILY06 09/07/17 (*)] Losartan Potassium [Cozaar 50 mg 50 mg PO DAILY 09/07/17 (*)] Metoprolol Tartrate [Lopressor 25 25 mg PO BID 09/07/17 mg (*)] Atorvastatin Calcium 80 mg PO HS 05/06/18 Ipratropium/Albuterol [Duoneb (*)] 3 ml IH QID #60 deyvial 05/09/18 guaiFENesin [Mucinex 600 MG (*)] 1,200 mg PO BID tab.er 05/09/18 predniSONE 40 mg PO DAILY #8 tablet 05/09/18 Medical Decision Making - Diagnostics Imaging Results: Imaging Impressions Head CT 08/04/18 18:14 Impression: Stable negative noncontrast CT of the brain. Occipital subcutaneous hematoma. Results called to Dr. Gilda Baum at 7:10 PM at the time of the interpretation. Imaging: Discussed imaging studies w/ call box wirer Radiologist, I viewed and interpreted images myself ED Course/Re-evaluation: CT head results discussed with the patient and her daughter. No ICH or fx. Neurologic exam remains intact. Head injury precautions given. - Data Points Laboratory Results: 08/04/18 18:22 POC Hgb 12.6 gm/dL gm/dL (12.6-16.3) POC Hct 37 % L % (38-47) POC Sodium 142 mEq/L mEq/L (135-145) POC Potassium 4.1 mEq/L mEq/L (3.3-5.0) POC Chloride 104 mEq/L mEq/L (97-110) POC BUN 29 mg/dL H mg/dL (7-23) POC Creatinine 1.3 mg/dL H mg/dL (0.6-1.0) POC Glucose 93 mg/dL mg/dL (70-100) Point of Care Test Results: Chemistry 08/04/18 18:22 POC Sodium 142 mEq/L mEq/L (135-145) POC Potassium 4.1 mEq/L mEq/L (3.3-5.0) POC Chloride 104 mEq/L mEq/L (97-110) POC BUN 29 mg/dL H mg/dL (7-23) POC Creatinine 1.3 mg/dL H mg/dL (0.6-1.0) POC Glucose 93 mg/dL mg/dL (70-100) ISTAT H&H 08/04/18 18:22 POC Hgb 12.6 gm/dL gm/dL (12.6-16.3) POC Hct 37 % L % (38-47) Departure - Departure Disposition: Home, Routine, Self-Care Clinical Impression: Head injury Qualifiers: Encounter type: initial encounter Qualified Code(s): S09.90XA - Unspecified injury of head, initial encounter Condition: Good Instructions: Head Injury (ED) Referrals: Roya Zhang MD [Primary Care Provider] - As per Instructions
[2018-08-04 19:40] VITALS: BP 164/91
== END 2018-08-04 19:40 | disposition home or self-care (01) ==
DX: S00.03XA Contusion of scalp, initial encounter (principal); W10.8XXA Fall (on) (from) other stairs and steps, initial encounter; I48.91 Unspecified atrial fibrillation; I25.10 Atherosclerotic heart disease of native coronary artery without angina pectoris; I10 Essential (primary) hypertension; Z79.01 Long term (current) use of anticoagulants; Z86.73 Personal history of transient ischemic attack (TIA), and cerebral infarction without residual deficits
CPT/HCPCS: 82435-PO; 82565-PO; 82947-PO; 84132-PO; 84295-PO; 84520-PO; 85014-PO

== ENCOUNTER → 2018-08-16 | Outpatient (CLI) | payer OTHER | LOC: BMCIMAGING 11:22 | PROVIDERS: ATTEND Family Medicine | DX: M16.0 Bilateral primary osteoarthritis of hip (principal); M47.9 Spondylosis, unspecified ==

== ENCOUNTER → 2018-09-06 | Outpatient (CLI) | payer OTHER | LOC: BHFA 09:00 | PROVIDERS: ATTEND Internal Medicine Cardiovascular Disease | DX: I48.91 Unspecified atrial fibrillation (principal) ==

== ENCOUNTER 2018-10-19 08:24 | Day surgery (SDC) | payer OTHER ==
[2018-10-19] MEDS ORDERED: ATROPINE SULFATE 1 MG/10 ML SYR IVP ONE (08:25)
[2018-10-19] MEDS ORDERED: MIDAZOLAM 2 MG/2 ML VIAL IVP ONE (08:25)
[2018-10-19] MEDS ORDERED: fentaNYL 100 MCG/2 ML INJ IVP ONE (08:25)
[2018-10-19] MEDS ORDERED: NS 500 ML IV ONE (08:25)
[2018-10-19 09:15] LABS: INR 1.43 (0.83-1.16); PROTIME(PATIENT) 17.6 SEC (12.0-15.0)
--- NOTE | 2018-10-19 09:32 | PDHPUP ---
History & Physical Update H&P update statement: This history and physical update is based on an assessment of the patient which was completed after admission or registration (within 24 hours), but prior to the surgery/procedure. H&P update: H&P reviewed & patient examined, no change in patient's condition since H&P completed
--- NOTE | 2018-10-19 09:32 | PDPROPOC ---
Sedation Plan of Care Sedation Plan of Care: vital signs stable, mental status noted, patient educated of risks, benefits, alternatives, patient can tolerate sedation ASA Classification: ASA 2 Planned drugs: fentanyl, midazolam Mallampati Score: Class 2 Mallampati Reference Image: Patient passed 3-3-2 rule?: Yes
[2018-10-19] MEDS ORDERED: ETOMIDATE 40 MG/20 ML INJ ONE (09:44)
--- NOTE | 2018-10-19 10:10 | PDTEE1 ---
BRANDIE Cardioversion Procedure Procedure: electrical cardioversion, transesophageal echo Indications: atrial fibrillation Consent: signed and in chart Anticoagulation: eliquis Procedural Details: PROCEDURE: Elective BRANDIE and DC cardioversion. DATE OF PROCEDURE: 10/19/2018d COMPLICATIONS: None FISH ROE PROCESSOR: Tao Chambers MD INDICATION AND APPROPRIATE USE CRITERIA: PAROXYSMAL (SYMPTOMATIC) AND SUSTAINED ATRIAL FIBRILLATION PROCEDURE IN DETAIL: After informed consent was obtained and n.p.o. status was confirmed, the oropharynx was anesthetized with 1% cetacaine topical solution. The patient was given 2 mg of Versed as well as Fentanyl 50 mcg intravenously for sedation prior to the BRANDIE. The BRANDIE probe was advanced in to the patient's esophagus and the ultrasound revealed no evidence of left atrial clot or thrombus. (Please see the full report under separate cover.) We proceeded with elective DC cardioversion, the pads were placed in the anterior and posterior position. The patient was given 6mg Etomidate for deep sedation prior to being cardioverted. There was 250 J of biphasic synchronized counter shock delivered. The patient was successfully returned to normal sinus rhythm with occasional PACs and intermittent junctional escape. FINAL IMPRESSION: Successful BRANDIE guided elective DC cardioversion without immediate complication. The patient will remain on Eliquis 5mg PO BID for at least 30 days post procedure. The patient is to avoid caffeine, alcohol and strenuous exercise for the next 3 weeks. Synchronized cardioversion attempt #1: other (250J) Results: normal sinus rhythm Conclusions: successful cardioversion Conclusion Comment: Pads were placed in anterior-posterior position. BRANDIE probe was advanced and standard images obtained. There is no evidence of left atrial or left atrial appendage thrombus. Successful cardioversion. Patient Problems: Problems Problem Status Onset Acute exacerbation of congestive heart failure Acute Chronic obstructive pulmonary disease with acute exacerbation Acute Dyspnea Acute Hypoxemia Acute Weakness Acute
--- NOTE | 2018-10-19 11:03 | CPEKG ---
Test Reason : OPEN Blood Pressure : / mmHG Vent. Rate : 082 BPM Atrial Rate : 000 BPM P-R Int : 165 ms QRS Dur : 120 ms QT Int : 405 ms P-R-T Axes : 000 077 059 degrees QTc Int : 473 ms Atrial flutter Nonspecific intraventricular conduction delay Nonspecific T abnrm, anterolateral leads Confirmed by Mendel Veloz ([id number]) on 10/19/2018 11:02:40 AM Referred By: Confirmed By:Mendel Veloz
--- NOTE | 2018-10-19 11:06 | CPEKG ---
Test Reason : OPEN Blood Pressure : / mmHG Vent. Rate : 061 BPM Atrial Rate : 061 BPM P-R Int : 262 ms QRS Dur : 117 ms QT Int : 435 ms P-R-T Axes : 054 011 046 degrees QTc Int : 439 ms Sinus rhythm Prolonged MT interval Borderline T abnormalities, anterior leads Confirmed by Mendel Veloz ([id number]) on 10/19/2018 11:05:49 AM Referred By: Confirmed By:Mendel Veloz
[2018-10-19] MEDS ORDERED: ETOMIDATE 20 MG/10 ML VIAL IV ONE (11:15)
--- NOTE | 2018-10-20 17:40 | ECHO ---
[email or web address] [address] [address] Main: [phone] Fax: Transesophageal Echocardiography Name: MELLO LEWIS MR#: [id number] Study Date: 10/19/2018 Study Time: 09:40 AM Date of : 1935 Age: 83 year(s) Height: ( ) Weight: ( ) BSA: Gender: Female Examination: BRANDIE Indication: pre-cardioversion; r/o MALLIKA clot Image Quality: Contrast: Requested by: Tao Chambers Heart Rate: Rhythm: BP: / Procedure Staff Offal Baler: Rebecca Pat [facility] Reading Physician: Tao Chambers MD Requesting Provider: BRANDIE Exam Details Conclusions: No thrombus is noted in the left atrium. No thrombus in left appendage. Moderate mitral valve regurgitation is present. The aortic valve is tri-leaflet. Moderate aortic valve regurgitation is present. Trivial tricuspid valve regurgitation. Dilated. No pericardial effusion. This is a BRANDIE performed to evaluate for atrial thrombus prior to a cardioversion. Proceeded with elective DC cardioversion which was successful. Measurements: Chambers Valvular Assessment AV/MV Valvular Assessment TV/PV Normal Normal Normal Name Value Range Name Value Range Name Value Range Additional Measurements: Findings: Left Atrium: No thrombus is noted in the left atrium. Patient: MELLO LEWIS Study Date: 10/19/2018 Page 1 of 2 09:40 AM Left Atrial Appendage: No thrombus in left appendage. Mitral Valve: Moderate mitral valve regurgitation is present. Aortic Valve: The aortic valve is tri-leaflet. Moderate aortic valve regurgitation is present. Tricuspid Valve: Trivial tricuspid valve regurgitation. Aorta: Dilated. Pericardium: No pericardial effusion. l1n (No Signature Object) Patient: MELLO LEWIS Study Date: 10/19/2018 Page 2 of 2 09:40 AM [id number]
== END 2018-10-19 12:00 | disposition home or self-care (01) ==
LOC: FCATH 08:24
PROVIDERS: ATTEND Internal Medicine Cardiovascular Disease
PROC: B245ZZ4 Ultrasonography of Left Heart, Transesophageal (ICD-10-PCS; principal; 2018-10-19)
PROC: 5A2204Z Restoration of Cardiac Rhythm, Single (ICD-10-PCS; principal; 2018-10-19)
DX: I48.0 Paroxysmal atrial fibrillation (principal); J44.9 Chronic obstructive pulmonary disease, unspecified; E03.9 Hypothyroidism, unspecified; I27.20 Pulmonary hypertension, unspecified; Z87.891 Personal history of nicotine dependence
CPT/HCPCS: J0461; J2250; J3010

== ENCOUNTER → 2018-10-26 | Outpatient (CLI) | payer OTHER | LOC: BHFA 09:15 | PROVIDERS: ATTEND Physician Assistant | DX: I35.1 Nonrheumatic aortic (valve) insufficiency (principal); I48.91 Unspecified atrial fibrillation; I34.0 Nonrheumatic mitral (valve) insufficiency; I48.0 Paroxysmal atrial fibrillation ==